=== PATIENT | female | born 1940 | race Caucasian/White ===

== ENCOUNTER 2018-04-07 09:45 | Day surgery (SDC) | payer MEDICARE, OTHER ==
[~2018-04-07] VITALS: Ht 167.6 cm; Wt 71.4 kg
[~2018-04-07 09:45] MED LIST: ATOR10 PO; Aspir 8181 MG PO; CALCIUM + D3 E1 EACH PO; CIPR500 PO; CRANBERRY; ERGO400 PO; ESCI10 PO; FISH1000 PO; FLUT44OIA INH; HYDACE5 PO; MULVITA PO; Metamucil Smooth1 EA PO; Ocuvite Softge1 EAC1 PO; RISE35 PO; RXERYTOPTH OP; Stool Softener100 MG PO; TUMERIC; UBID100 PO; VITB100 PO; [UNRECOGNIZED DRUG - OTHER] PO
--- NOTE | 2018-04-07 10:57 | NUR ---
04/07/18 1057 Lisette Ontiveros PT RESTING IN PREOP. PT DENIES QUESTIONS AFTER PREOP TEACHING.
== END 2018-04-07 11:49 | disposition home or self-care (01) ==
LOC: ORSCSDS 09:45
PROVIDERS: Surgery
PROC: 0DJD8ZZ Inspection of Lower Intestinal Tract, Via Natural or Artificial Opening Endoscopic (ICD-10-PCS; principal; 2018-04-07 11:00)
DX: Z12.11 Encounter for screening for malignant neoplasm of colon (principal); Z80.0 Family history of malignant neoplasm of digestive organs; Z86.010 Personal history of colon polyps; Z79.899 Other long term (current) drug therapy; Z79.82 Long term (current) use of aspirin
CPT/HCPCS: J7120

== ENCOUNTER → 2018-05-17 | Outpatient (CLI) | payer MEDICARE, OTHER | END | disposition home or self-care (01) | LOC: PLD 15:57 → LAB SHORT 15:57 | DX: D48.5 Neoplasm of uncertain behavior of skin (principal) | CPT/HCPCS: 88305 ==

== ENCOUNTER → 2019-06-20 | Outpatient (CLI) | payer MEDICARE, OTHER ==
[2019-06-20 08:09] LABS: Source, Urine Clean Catch
[2019-06-20 08:36] LABS: Bilirubin, Urine Neg (Neg); Blood, Urine Neg (Neg); Glucose Qualitative, Urine Neg (Neg); Ketones, Urine Neg (Neg); Leukocyte Esterase, Urine 1+ (Neg); Nitrite, Urine Neg (Neg); Protein, Urine Neg (Neg); Urobilinogen, Urine NORM (Normal)
[2019-06-20 08:47] LABS: Appearance, Urine Clear (Clear); Color, Urine Yellow (P-Yellow)
[2019-06-20 08:51] LABS: Bacteria Few /hpf; Red Blood Cells, Urine 0-2 /hpf (0-2); Squamous Epithelial Cells Few /hpf (Few); White Blood Cells, Urine 0-2 /hpf (0-5)
== END | disposition home or self-care (01) ==
LOC: LAB SHORT 08:07 → LAB 08:07
PROVIDERS: Internal Medicine
DX: R31.29 Other microscopic hematuria (principal)
CPT/HCPCS: 81001; 87086; 88108

== ENCOUNTER → 2020-04-18 | Outpatient (CLI) | payer MEDICARE, OTHER ==
[2020-04-18 10:53] LABS: Source, Urine Clean Catch
[2020-04-18 12:19] LABS: Appearance, Urine Clear (Clear); Bilirubin, Urine Neg (Neg); Blood, Urine Neg (Neg); Color, Urine Yellow (P-Yellow); Glucose Qualitative, Urine Neg (Neg); Ketones, Urine Neg (Neg); Leukocyte Esterase, Urine Neg (Neg); Nitrite, Urine Neg (Neg); Protein, Urine Neg (Neg); Specific Gravity, Urine 1.015 (1.003-1.022); Urobilinogen, Urine NORM (Normal)
== END | disposition home or self-care (01) ==
LOC: OLS 10:52 → LAB SHORT 10:52
PROVIDERS: Internal Medicine
DX: N39.0 Urinary tract infection, site not specified (principal)
CPT/HCPCS: 81003

== ENCOUNTER → 2021-07-23 | Outpatient (CLI) | payer MEDICARE, OTHER ==
[2021-07-31 05:11] LABS: CREATININE, URINE 45.6 mg/dL (Not Estab.); N-TELO/CREAT. RATIO 47 (0-89); N-TELOPEPTIDE 189 nmol BCE (Not Estab.)
== END | disposition home or self-care (01) ==
LOC: LAB SHORT 08:02 → LAB 08:02 → LAB FUT 07-23 07:10
PROVIDERS: Internal Medicine
DX: E78.5 Hyperlipidemia, unspecified (principal); M81.0 Age-related osteoporosis without current pathological fracture; R73.9 Hyperglycemia, unspecified; Z79.899 Other long term (current) drug therapy
CPT/HCPCS: 82523; 82570

== ENCOUNTER 2023-12-16 17:03 | Emergency (ER) | payer MEDICARE, OTHER ==
[~2023-12-16] VITALS: Ht 167.6 cm; Wt 70.3 kg
[2023-12-16 17:56] LABS: BASOPHILS ABSOLUTE AUTO 0.03 K/mm3 (0.00-0.23); BASOPHILS PERCENT AUTO 0 % (0-2); EOSINOPHILS ABSOLUTE AUTO 0.18 K/mm3 (0.00-0.68); EOSINOPHILS PERCENT AUTO 2 % (0-6); Hematocrit 44.8 % (33.0-51.0); Hemoglobin 14.7 g/dL (11.5-16.0); IMMATURE GRAN ABSOLUTE AUTO 0.01 K/mm3 (0.00-0.10); IMMATURE GRAN PERCENT AUTO 0 % (0-1); LYMPHOCYTES ABSOLUTE AUTO 2.56 K/mm3 (0.84-5.20); LYMPHOCYTES PERCENT AUTO 33 % (21-46); MONOCYTES ABSOLUTE AUTO 0.74 K/mm3 (0.16-1.47); MONOCYTES PERCENT AUTO 10 % (4-13); Mean Corpuscular HGB Conc 32.8 g/dL (31.5-36.5); Mean Corpuscular Volume 88 fL (80-100); Mean Platelet Volume 10.3 fL (9.1-12.4); NEUTROPHILS ABSOLUTE AUTO 4.23 K/mm3 (1.96-9.15); NEUTROPHILS PERCENT AUTO 55 % (41-73); Platelet Count 165 K/mm3 (150-400); RDW Coefficient Variation 13.8 % (11.7-14.2); RDW Standard Deviation 44.6 fL (35.1-46.3); Red Blood Cell Count 5.07 M/mm3 (3.80-5.20); White Blood Cell Count 7.75 K/mm3 (4.00-11.30)
[2023-12-16 18:13] LABS: Albumin, Blood 3.8 g/dL (3.4-5.0); Albumin/Globulin Ratio 1.1 (0.8-1.8); Bilirubin, Total 0.5 mg/dL (0.1-1.0); Bun/Creatinine Ratio 23.6 (12.0-20.0); Calcium, Blood 8.7 mg/dL (8.5-10.1); Creatinine, Blood 0.64 mg/dL (0.40-1.00); Globulin, Blood 3.5 g/dL (2.2-4.0); Potassium, Blood 4.1 mmol/L (3.5-5.5); Total Protein, Blood 7.3 g/dL (6.4-8.2)
[2023-12-16] MEDS ORDERED: Diltiazem HCl 5 MG / ML 5ML Vial IV ONE ×2 (19:40→20:55)
[2023-12-16 20:34] LABS: Free Thyroxine 0.99 ng/dL (0.70-1.60); Magnesium, Blood 2.3 mg/dL (1.6-2.4)
[2023-12-16 22:45] VITALS: BP 117/72
== END 2023-12-16 22:55 | disposition home or self-care (01) ==
LOC: ER 17:03
PROVIDERS: Emergency Medicine; Physician Assistant
DX: Z79.899 Other long term (current) drug therapy (principal); I48.0 Paroxysmal atrial fibrillation; D69.6 Thrombocytopenia, unspecified; R53.83 Other fatigue
CPT/HCPCS: 36415; 71045; 80048; 80053; 83735; 84439; 84443; 84484; 85025; 85379; 93005; 93010; 96374; 96376; 99285-25

== ENCOUNTER 2024-06-09 10:45 | Emergency (ER) | payer MEDICARE, OTHER ==
[~2024-06-09] VITALS: Ht 317.5 cm; Wt 70.3 kg
[2024-06-09] MEDS ORDERED: Diltiazem HCl 5 MG / ML 5ML Vial IV ONE ×2 (11:15→12:00)
[2024-06-09] MEDS ORDERED: NS 1,000 ML IV SCH (11:15)
[2024-06-09] MEDS ORDERED: ELIQUIS5 M3 PO (11:20)
[2024-06-09] MEDS ORDERED: METOPROLOL SUCC25 MG PO (11:20)
[2024-06-09 11:28] LABS: BASOPHILS ABSOLUTE AUTO 0.03 K/mm3 (0.00-0.23); BASOPHILS PERCENT AUTO 1 % (0-2); EOSINOPHILS PERCENT AUTO 2 % (0-6); Hematocrit 45.5 % (33.0-51.0); Hemoglobin 15.1 g/dL (11.5-16.0); IMMATURE GRAN ABSOLUTE AUTO 0.01 K/mm3 (0.00-0.10); IMMATURE GRAN PERCENT AUTO 0 % (0-1); LYMPHOCYTES ABSOLUTE AUTO 2.08 K/mm3 (0.84-5.20); LYMPHOCYTES PERCENT AUTO 33 % (21-46); MONOCYTES ABSOLUTE AUTO 0.71 K/mm3 (0.16-1.47); MONOCYTES PERCENT AUTO 11 % (4-13); Mean Corpuscular HGB 29.2 pg (26.0-34.0); Mean Corpuscular HGB Conc 33.2 g/dL (31.5-36.5); Mean Corpuscular Volume 88 fL (80-100); Mean Platelet Volume 10.9 fL (9.1-12.4); NEUTROPHILS ABSOLUTE AUTO 3.32 K/mm3 (1.96-9.15); NEUTROPHILS PERCENT AUTO 53 % (41-73); Platelet Count 138 K/mm3 (150-400); RDW Coefficient Variation 13.8 % (11.7-14.2); RDW Standard Deviation 44.8 fL (35.1-46.3); Red Blood Cell Count 5.18 M/mm3 (3.80-5.20); White Blood Cell Count 6.25 K/mm3 (4.00-11.30)
[2024-06-09] MEDS ORDERED: Magnesium Sulf 2 GM/Water 50ML 50 ML IV ONE (11:30)
[2024-06-09 12:01] LABS: Albumin, Blood 3.8 g/dL (3.4-5.0); Albumin/Globulin Ratio 1.2 (0.8-1.8); Bilirubin, Total 1.2 mg/dL (0.1-1.0); Bun/Creatinine Ratio 23.4 (12.0-20.0); Calcium, Blood 8.8 mg/dL (8.5-10.1); Creatinine, Blood 0.73 mg/dL (0.40-1.00); Globulin, Blood 3.2 g/dL (2.2-4.0); Magnesium, Blood 2.2 mg/dL (1.6-2.4); Potassium, Blood 4.2 mmol/L (3.5-5.5)
[2024-06-09] MEDS ORDERED: Metoprolol Tartrate 25 MG Tab PO ONE (13:00)
[2024-06-09] MEDS ORDERED: Etomidate 2MG / ML 10ML Vial IV SCH (14:05)
[2024-06-09 15:00] VITALS: BP 108/73
== END 2024-06-09 15:36 | disposition home or self-care (01) ==
LOC: ER 10:45
PROVIDERS: Student in an Organized Health Care Education/Training Program
DX: I48.91 Unspecified atrial fibrillation (principal); E78.5 Hyperlipidemia, unspecified; Z79.899 Other long term (current) drug therapy
CPT/HCPCS: 80053; 83735; 85025; 92960; 93005; 93010; 93242; 96365-59; 96375-59; 96376-59; 99285-25; A9270; J3475; J7030

== ENCOUNTER 2024-06-15 09:45 | Emergency (ER) | payer MEDICARE, OTHER ==
[~2024-06-15] VITALS: Ht 167.6 cm; Wt 70.3 kg
[~2024-06-15 09:45] MED LIST changes: +ELIQUIS5 M3 PO; +METOPROLOL SUCC25 MG PO
[2024-06-15] MEDS ORDERED: Diltiazem HCl 5 MG / ML 5ML Vial IV ONE (10:15)
[2024-06-15 10:31] LABS: BASOPHILS ABSOLUTE AUTO 0.06 K/mm3 (0.00-0.23); BASOPHILS PERCENT AUTO 1 % (0-2); EOSINOPHILS ABSOLUTE AUTO 0.14 K/mm3 (0.00-0.68); EOSINOPHILS PERCENT AUTO 2 % (0-6); Hematocrit 49.3 % (33.0-51.0); Hemoglobin 16.4 g/dL (11.5-16.0); IMMATURE GRAN ABSOLUTE AUTO 0.01 K/mm3 (0.00-0.10); IMMATURE GRAN PERCENT AUTO 0 % (0-1); LYMPHOCYTES ABSOLUTE AUTO 2.58 K/mm3 (0.84-5.20); LYMPHOCYTES PERCENT AUTO 40 % (21-46); MONOCYTES ABSOLUTE AUTO 0.79 K/mm3 (0.16-1.47); MONOCYTES PERCENT AUTO 12 % (4-13); Mean Corpuscular HGB 29.2 pg (26.0-34.0); Mean Corpuscular HGB Conc 33.3 g/dL (31.5-36.5); Mean Corpuscular Volume 88 fL (80-100); Mean Platelet Volume 10.2 fL (9.1-12.4); NEUTROPHILS ABSOLUTE AUTO 2.84 K/mm3 (1.96-9.15); NEUTROPHILS PERCENT AUTO 44 % (41-73); Platelet Count 150 K/mm3 (150-400); RDW Coefficient Variation 13.9 % (11.7-14.2); RDW Standard Deviation 44.7 fL (35.1-46.3); Red Blood Cell Count 5.62 M/mm3 (3.80-5.20); White Blood Cell Count 6.42 K/mm3 (4.00-11.30)
[2024-06-15 10:52] LABS: Albumin, Blood 3.6 g/dL (3.4-5.0); Bilirubin, Total 0.8 mg/dL (0.1-1.0); Calcium, Blood 8.5 mg/dL (8.5-10.1); Creatinine, Blood 0.71 mg/dL (0.40-1.00); Globulin, Blood 3.5 g/dL (2.2-4.0); Potassium, Blood 4.2 mmol/L (3.5-5.5); Thyroid Stimulating Hormone 4.5 uIU/mL (0.360-4.800); Total Protein, Blood 7.1 g/dL (6.4-8.2)
[2024-06-15] MEDS ORDERED: NS 250 ML IV SCH (10:55)
[2024-06-15] MEDS ORDERED: NS 1,000 ML IV SCH (11:05)
[2024-06-15] MEDS ORDERED: CARTIA XT120 M1 PO (11:35)
[2024-06-15 11:54] VITALS: BP 98/69
[2024-06-20] MEDS ORDERED: JARDIANCE10 MG PO (11:52)
[2024-06-20] MEDS ORDERED: METO25ER PO (11:53)
[2024-06-20] MEDS ORDERED: SPIR25 PO (12:18)
[2024-06-20] MEDS ORDERED: TORSE20 PO (12:23)
[2024-06-20] MEDS ORDERED: Amiodarone HCl200 MG PO (12:34)
[2024-06-20] MEDS ORDERED: AMIODARONE HCL200 MG PO (12:35)
== END 2024-06-15 11:55 | disposition home or self-care (01) ==
LOC: ER 09:45
PROVIDERS: Emergency Medicine
DX: I48.91 Unspecified atrial fibrillation (principal); F17.210 Nicotine dependence, cigarettes, uncomplicated; Z79.01 Long term (current) use of anticoagulants; Z79.899 Other long term (current) drug therapy
CPT/HCPCS: 80053; 83735; 84443; 84484; 85025; 93005; 93010; 96361; 96374; 99284-25; 99285-25; J7030

== ENCOUNTER 2024-06-18 09:38 | Inpatient (IN) | payer MEDICARE, OTHER ==
[~2024-06-18] VITALS: Ht 167.6 cm; Wt 68.9 kg
[~2024-06-18 09:38] MED LIST changes: +CARTIA XT120 M1 PO
[2024-06-18] MEDS ORDERED: dilTIAZem HCL 100 MG in NS 100 ML IV SCH (10:30)
[2024-06-18] MEDS ORDERED: Diltiazem HCl 5 MG / ML 5ML Vial IV ONE (10:30)
[2024-06-18 10:45] LABS: BASOPHILS ABSOLUTE AUTO 0.04 K/mm3 (0.00-0.23); BASOPHILS PERCENT AUTO 1 % (0-2); EOSINOPHILS ABSOLUTE AUTO 0.13 K/mm3 (0.00-0.68); EOSINOPHILS PERCENT AUTO 2 % (0-6); Hematocrit 47.5 % (33.0-51.0); Hemoglobin 15.6 g/dL (11.5-16.0); IMMATURE GRAN ABSOLUTE AUTO 0.01 K/mm3 (0.00-0.10); IMMATURE GRAN PERCENT AUTO 0 % (0-1); LYMPHOCYTES ABSOLUTE AUTO 2.62 K/mm3 (0.84-5.20); LYMPHOCYTES PERCENT AUTO 45 % (21-46); MONOCYTES ABSOLUTE AUTO 0.71 K/mm3 (0.16-1.47); MONOCYTES PERCENT AUTO 12 % (4-13); Mean Corpuscular HGB Conc 32.8 g/dL (31.5-36.5); Mean Corpuscular Volume 88 fL (80-100); Mean Platelet Volume 10.6 fL (9.1-12.4); NEUTROPHILS ABSOLUTE AUTO 2.34 K/mm3 (1.96-9.15); NEUTROPHILS PERCENT AUTO 40 % (41-73); Platelet Count 172 K/mm3 (150-400); RDW Coefficient Variation 14.3 % (11.7-14.2); RDW Standard Deviation 45.9 fL (35.1-46.3); Red Blood Cell Count 5.38 M/mm3 (3.80-5.20); White Blood Cell Count 5.85 K/mm3 (4.00-11.30)
[2024-06-18 10:51] LABS: Albumin, Blood 3.8 g/dL (3.4-5.0); Albumin/Globulin Ratio 1.2 (0.8-1.8); Bilirubin, Total 1.2 mg/dL (0.1-1.0); Bun/Creatinine Ratio 14.6 (12.0-20.0); Calcium, Blood 8.5 mg/dL (8.5-10.1); Creatinine, Blood 0.75 mg/dL (0.40-1.00); Globulin, Blood 3.2 g/dL (2.2-4.0); Potassium, Blood 4.1 mmol/L (3.5-5.5)
[2024-06-18] MEDS ORDERED: TraZODone HCl 50 MG Tab PO PRN (13:40)
[2024-06-18] MEDS ORDERED: Ondansetron 4 MG TAB PO PRN (13:40)
[2024-06-18] MEDS ORDERED: Magnesium Hydroxide Conc 10 ML UDC PO PRN (13:45)
[2024-06-18] MEDS ORDERED: Bisacodyl 10 MG Supp PR PRN (13:45)
[2024-06-18] MEDS ORDERED: FLU VACC TS2024-25(6MOS UP)/PF 45 MCG/0.5 ML SYRINGE IM PRN (13:45)
[2024-06-18 15:30] VITALS: BP 135/85
[2024-06-18 15:45] VITALS: BP 112/84
[2024-06-18 16:14] LABS: Source, Urine Clean Catch
[2024-06-18 16:18] LABS: Appearance, Urine Clear (Clear); Bilirubin, Urine Neg (Neg); Blood, Urine Neg (Neg); Glucose Qualitative, Urine Neg (Neg); Ketones, Urine Neg (Neg); Leukocyte Esterase, Urine Neg (Neg); Nitrite, Urine Neg (Neg); Protein, Urine Neg (Neg); Urobilinogen, Urine NORM (Normal)
[2024-06-18 16:30] VITALS: BP 111/65
[2024-06-18 16:34] LABS: Color, Urine Pale Yellow (P-Yellow)
[2024-06-18] MEDS ORDERED: Midodrine 5 MG Tab PO SCH (18:00)
[2024-06-18] MEDS ORDERED: Furosemide 10 MG/ML 4ML Vial IV SCH (18:00)
[2024-06-18 18:15] VITALS: BP 127/93
[2024-06-18] MEDS ORDERED: Polyethylene Glycol 3350 17 gm PO PRN (18:15)
--- NOTE | 2024-06-18 18:41 | NUR ---
Admit/ End of shift note. Pt admitted from the ED to room [id number]. Pt and family were oriented to room and call light system. Pt on Amio gtt, infusing without issue. Rate to change at approx 2100. HR 100-120s. BP stable. Pt has been OOB to the bathroom, standby assist with lines/cords. Pt was educated on the importance of calling before getting OOB. Pt reports it has been a few days since a BM. PRN Chauncey was given Pt is able to make needs known, call light is within reach.
[2024-06-18 19:00] VITALS: BP 125/93
--- NOTE | 2024-06-18 20:22 | NUR ---
ASSUMED CARE OF THIS PT AT 1900. PT IS A+O X4 SITTING UP IN BED WITH FAMILY AT BEDSIDE (TWO ADULT DAUGHTERS). THEY EXPLAIN HER ISSUES WITH HER HEART RATE AND TELL ME OF THEIR SEVERAL TRIPS TO DOCTORS RECENTLY TO TRY TO MANAGE HER AFIB. OTHER THEN THIS CURRENT ISSUES SHE IS NORMALLY VERY ACTIVE ANS HEALTHY. THE PATIENT LIVES ALONE AND STILL DRIVES BUT HAS A LOT OF FAMILY SUPPORT. LUNG SOUNDS ARE CLEAR, SHE IS RA SATTING ABOVE 95% ON SPOT CHECK. TELE IN PLACE SHOWING AFIB WITH A RATE OF 115 AT THIS TIME. PT DENIES CHEST PAIN OR PRESSURE. NO SKIN ISSUES NOTED. BED IN LOWEST POSTION, CALL LIGHT IN REACH. WILL CONTINUE WITH PLAN OF CARE.
[2024-06-18] MEDS ORDERED: Lactobacil 2-S.Thermo-Bifido 1 1 Cap PO SCH (21:00)
[2024-06-18] MEDS ORDERED: Metoprolol Tartrate 25 MG Tab PO SCH ×2 (21:00)
[2024-06-18] MEDS ORDERED: Apixaban 5 MG Tab PO SCH (21:00)
--- NOTE | 2024-06-18 21:01 | NUR ---
NURSE NOTE DILT GTT TITRATED TO 16.7 PER EMAR.
[2024-06-19] VITALS (7 sets, daily range): BP systolic 107–137; BP diastolic 68–106
--- NOTE | 2024-06-19 01:50 | NUR ---
NURSE NOTE SECOND BAG OF AMIODARONE HUNG AT 0059 INFUSING AT A RATE OF 16.7. PATIENT IS RESTING IN BED, IN NO ACUTE DISTRESS OR DISCOMFORT, BREATHING EVEN AND UNLABORED, VSS. BED IN LOWEST POSTION. CALL LIGHT IN REACH.
[2024-06-19 04:06] LABS: Hematocrit 45.4 % (33.0-51.0); Hemoglobin 15.5 g/dL (11.5-16.0); Mean Corpuscular HGB 29.5 pg (26.0-34.0); Mean Corpuscular HGB Conc 34.1 g/dL (31.5-36.5); Mean Corpuscular Volume 86 fL (80-100); Mean Platelet Volume 10.5 fL (9.1-12.4); Platelet Count 151 K/mm3 (150-400); RDW Coefficient Variation 14.1 % (11.7-14.2); RDW Standard Deviation 44.5 fL (35.1-46.3); Red Blood Cell Count 5.26 M/mm3 (3.80-5.20); White Blood Cell Count 7.12 K/mm3 (4.00-11.30)
[2024-06-19 04:25] LABS: Bun/Creatinine Ratio 18.5 (12.0-20.0); Calcium, Blood 8.5 mg/dL (8.5-10.1); Creatinine, Blood 0.65 mg/dL (0.40-1.00); Magnesium, Blood 2.1 mg/dL (1.6-2.4); Potassium, Blood 3.4 mmol/L (3.5-5.5)
[2024-06-19] MEDS ORDERED: Potassium Chloride 10 Meq Tablet SA PO ONE (04:54)
[2024-06-19] MEDS ORDERED: Famotidine 20 MG Tab PO SCH (06:00)
--- NOTE | 2024-06-19 06:07 | NUR ---
SHIFT SUMMARY PT IS A+O X4 ABLE TO MAKE NEEDS KNOWN. SHE WAS ABLE TO SLEEP MOST OF THE NIGHT. 1 PERSON/ SBA TO BATHROOM TO ASSIST WITH LINES. BP STABLE. AFIB ON THE MONTIOR RATE BETWEEN 100-120s AT REST, HR WILL JUMP UP INTO THE 140s/150S W/ ACTIVITY. DENIES CHEST PAIN OR PRESSURE, DENIES PAIN OR ANY KIND. GOOD PO FLUID INTAKE AND GOOD OUT PUT. K OF 3.4 THIS MORNING REPLACED WITH 30 MEQs PO. PT TANVI PILLS WHOLE WITH WATER. BED IN LOWEST POSTION, CALL LIGHT IN REACH WILL CONTINUE WITH PLAN OF CARE AND REPORT TO ONCOMING RN.
[2024-06-19] MEDS ORDERED: Amiodarone HCl 200 MG Tab PO ONE (08:25)
[2024-06-19] MEDS ORDERED: Amiodarone HCl 200 MG Tab PO SCH (09:00)
[2024-06-19] MEDS ORDERED: Atorvastatin 10 MG Tab PO SCH (09:00)
[2024-06-19] MEDS ORDERED: Midodrine 2.5 MG Tab PO SCH (09:00)
[2024-06-19] MEDS ORDERED: Potassium Chloride 20 MEQ TabCR PO ONE (09:00)
[2024-06-19] MEDS ORDERED: Furosemide 10 MG/ML 4ML Vial IV SCH (09:00)
[2024-06-19] MEDS ORDERED: Digoxin 0.25 MG/ML 2ML Amp IV ONE (12:50)
--- NOTE | 2024-06-19 16:54 | NUR ---
SHIFT SUMMARY: PT HAS BEEN A&Ox4, COOPERATIVE W/CARE, ABLE TO COMMUNICATE NEEDS. PT DENIES SOB AT REST, DID REPORT MILD DYSPNEA WHEN AMBULATING W/THERAPY TEAM, STATES IMPROVEMENT UPON REST, O2 SATS >95% ON RA. PT DENIES CP, AFIB/FLUTTER ON MONITOR, RATE 100-110s AT REST AND INCREASES TO 130 W/ACTIVITY BUT DOES RECOVER W/REST. CARDIOLOGY CONSULT COMPLETED AT BEDSIDE, AMIO INFUSION CHANGED FROM IV TO PO, ONE TIME IVP CARDIZEM PER ORDERS. PT INDEPENDENT IN ROOM, SHOWER AND BMx1 TODAY. PT RESTING IN BED W/CALL LIGHT IN REACH.
--- NOTE | 2024-06-19 20:21 | NUR ---
assumption of care: REPORT RECEIVED FROM DAY RN. PATIENT IS ALERT/ORIENTATED. FAMILY IN ROOM VISITING. PATIENT APPEARS COMFORTABLE. CONTINUE CARE
[2024-06-19] MEDS ORDERED: Metoprolol Succinate 25 MG TABCR PO SCH (21:00)
[2024-06-20 00:07] VITALS: BP 91/70
[2024-06-20 03:52] LABS: Hematocrit 46.4 % (33.0-51.0); Hemoglobin 15.7 g/dL (11.5-16.0)
[2024-06-20 04:07] VITALS: BP 92/74
[2024-06-20 04:11] LABS: Bun/Creatinine Ratio 22.8 (12.0-20.0); Calcium, Blood 8.2 mg/dL (8.5-10.1); Creatinine, Blood 0.66 mg/dL (0.40-1.00); Magnesium, Blood 1.9 mg/dL (1.6-2.4); Potassium, Blood 3.7 mmol/L (3.5-5.5)
--- NOTE | 2024-06-20 05:09 | NUR ---
Patient slept well. Up to bathroom and voiding in good amounts. Blood pressures soft tonight. No c/o pain Tele Afib. Plan to discharge to home. Continue Care.
[2024-06-20 07:57] VITALS: BP 113/86
[2024-06-20] MEDS ORDERED: Amiodarone HCl 200 MG Tab PO SCH (09:00)
[2024-06-20] MEDS ORDERED: Empagliflozin 10 MG TAB PO SCH (09:00)
[2024-06-20 11:44] VITALS: BP 91/74
[2024-06-20] MEDS ORDERED: JARDIANCE10 MG PO ×2 (11:52)
[2024-06-20] MEDS ORDERED: METO25ER PO ×2 (11:53)
--- NOTE | 2024-06-20 12:16 | NUR ---
AM NOTE/PENDING DC: PT CONTINUES A&Ox4, INDEPENDENT IN ROOM, ABLE TO MAKE NEEDS KNOWN. PT REPORTS IMPROVEMENT TO SOB W/ACTIVITY, DENIES SOB AT REST, O2 SATS >95% ON RA. PT CONVERTED TO SR 66 AT 1104, HOSPITALIST NOTIFIED. PT CONTINUES TO PEND DISCHARGE HOME, WAITING TO HEAR BACK F/INFANTRY SENIOR SERGEANT TO ENSURE CONTINUATION OF CURRENT MEDICATIONS UPON DC.
[2024-06-20] MEDS ORDERED: SPIR25 PO ×2 (12:18)
[2024-06-20] MEDS ORDERED: TORSE20 PO ×2 (12:23)
[2024-06-20] MEDS ORDERED: Amiodarone HCl200 MG PO ×2 (12:34)
[2024-06-20] MEDS ORDERED: AMIODARONE HCL200 MG PO ×2 (12:35)
[2024-06-20 13:25] VITALS: BP 93/79
--- NOTE | 2024-06-20 14:10 | NUR ---
Discharge note. Pt was discharged home. All new meds were educated on. All questions were answered for Pt and daughter. Pt ambualted to the outside door without issue. All belongings were taken with Pt.
[2024-06-21] MEDS ORDERED: Spironolactone 25 MG Tab PO SCH (09:00)
[2024-06-21] MEDS ORDERED: Torsemide 20 MG TAB PO SCH (09:00)
[2024-06-23] MEDS ORDERED: Amiodarone HCl 200 MG Tab PO SCH (09:00)
== END 2024-06-20 14:08 | disposition home or self-care (01) | DRG 308 ==
LOC: ER 09:38 → PCU 13:38
PROVIDERS: Emergency Medicine; ADMIT Hospitalist
DX: I48.0 Paroxysmal atrial fibrillation (principal); I50.33 Acute on chronic diastolic (congestive) heart failure; F10.239 Alcohol dependence with withdrawal, unspecified; M81.0 Age-related osteoporosis without current pathological fracture; E78.5 Hyperlipidemia, unspecified; Z96.652 Presence of left artificial knee joint; F17.210 Nicotine dependence, cigarettes, uncomplicated; I95.9 Hypotension, unspecified; I35.0 Nonrheumatic aortic (valve) stenosis; K21.9 Gastro-esophageal reflux disease without esophagitis; R79.89 Other specified abnormal findings of blood chemistry; Z79.01 Long term (current) use of anticoagulants; Z79.899 Other long term (current) drug therapy; Z87.19 Personal history of other diseases of the digestive system; Z90.49 Acquired absence of other specified parts of digestive tract; Z90.89 Acquired absence of other organs; Z98.41 Cataract extraction status, right eye
CPT/HCPCS: 36415; 71046; 80048; 80053; 80076; 81003; 83735; 83880; 84484; 85014; 85018; 85025; 85027; 93005; 93010; 93306; 96374; 97165; 97535; 99285-25; A9270; J0282; J1160; J1940; J7060

== ENCOUNTER 2024-07-16 21:49 | Inpatient (IN) | payer MEDICARE ==
[~2024-07-16] VITALS: Ht 167.6 cm; Wt 67.2 kg
[~2024-07-16 21:49] MED LIST changes: +AMIODARONE HCL200 MG PO; +Amiodarone HCl200 MG PO; +JARDIANCE10 MG PO; +METO25ER PO; +SPIR25 PO; +TORSE20 PO
[2024-07-16 22:15] LABS: BASOPHILS ABSOLUTE AUTO 0.05 K/mm3 (0.00-0.23); BASOPHILS PERCENT AUTO 1 % (0-2); EOSINOPHILS PERCENT AUTO 2 % (0-6); Hematocrit 47.1 % (33.0-51.0); Hemoglobin 15.5 g/dL (11.5-16.0); IMMATURE GRAN ABSOLUTE AUTO 0.02 K/mm3 (0.00-0.10); IMMATURE GRAN PERCENT AUTO 0 % (0-1); LYMPHOCYTES PERCENT AUTO 37 % (21-46); MONOCYTES ABSOLUTE AUTO 0.95 K/mm3 (0.16-1.47); MONOCYTES PERCENT AUTO 12 % (4-13); Mean Corpuscular HGB 28.5 pg (26.0-34.0); Mean Corpuscular HGB Conc 32.9 g/dL (31.5-36.5); Mean Corpuscular Volume 87 fL (80-100); Mean Platelet Volume 10.1 fL (9.1-12.4); NEUTROPHILS ABSOLUTE AUTO 4.01 K/mm3 (1.96-9.15); NEUTROPHILS PERCENT AUTO 49 % (41-73); Platelet Count 202 K/mm3 (150-400); RDW Coefficient Variation 14.2 % (11.7-14.2); RDW Standard Deviation 44.8 fL (35.1-46.3); Red Blood Cell Count 5.43 M/mm3 (3.80-5.20); White Blood Cell Count 8.23 K/mm3 (4.00-11.30)
[2024-07-16 22:34] LABS: Albumin, Blood 3.9 g/dL (3.4-5.0); Albumin/Globulin Ratio 1.1 (0.8-1.8); Bilirubin, Total 0.4 mg/dL (0.1-1.0); Bun/Creatinine Ratio 28.5 (12.0-20.0); Calcium, Blood 8.8 mg/dL (8.5-10.1); Creatinine, Blood 0.81 mg/dL (0.40-1.00); Globulin, Blood 3.5 g/dL (2.2-4.0); Potassium, Blood 3.9 mmol/L (3.5-5.5); Total Protein, Blood 7.4 g/dL (6.4-8.2)
[2024-07-17] VITALS (9 sets, daily range): BP systolic 80–115; BP diastolic 54–77
[2024-07-17] MEDS ORDERED: Acetaminophen 325 MG TABLET PO PRN (00:30)
[2024-07-17 00:53] LABS: Magnesium, Blood 2.3 mg/dL (1.6-2.4)
[2024-07-17 04:03] LABS: BASOPHILS ABSOLUTE AUTO 0.04 K/mm3 (0.00-0.23); BASOPHILS PERCENT AUTO 1 % (0-2); EOSINOPHILS ABSOLUTE AUTO 0.27 K/mm3 (0.00-0.68); EOSINOPHILS PERCENT AUTO 4 % (0-6); Hematocrit 47.2 % (33.0-51.0); Hemoglobin 15.5 g/dL (11.5-16.0); IMMATURE GRAN ABSOLUTE AUTO 0.03 K/mm3 (0.00-0.10); IMMATURE GRAN PERCENT AUTO 0 % (0-1); LYMPHOCYTES ABSOLUTE AUTO 2.62 K/mm3 (0.84-5.20); LYMPHOCYTES PERCENT AUTO 34 % (21-46); MONOCYTES ABSOLUTE AUTO 0.88 K/mm3 (0.16-1.47); MONOCYTES PERCENT AUTO 11 % (4-13); Mean Corpuscular HGB 28.8 pg (26.0-34.0); Mean Corpuscular HGB Conc 32.8 g/dL (31.5-36.5); Mean Corpuscular Volume 88 fL (80-100); NEUTROPHILS ABSOLUTE AUTO 3.96 K/mm3 (1.96-9.15); NEUTROPHILS PERCENT AUTO 51 % (41-73); Platelet Count 179 K/mm3 (150-400); RDW Coefficient Variation 14.4 % (11.7-14.2); RDW Standard Deviation 46.2 fL (35.1-46.3); Red Blood Cell Count 5.39 M/mm3 (3.80-5.20)
[2024-07-17 04:22] LABS: Albumin, Blood 3.5 g/dL (3.4-5.0); Bilirubin, Total 0.5 mg/dL (0.1-1.0); Bun/Creatinine Ratio 22.2 (12.0-20.0); Calcium, Blood 8.5 mg/dL (8.5-10.1); Creatinine, Blood 0.85 mg/dL (0.40-1.00); Globulin, Blood 3.4 g/dL (2.2-4.0); Magnesium, Blood 2.5 mg/dL (1.6-2.4); Potassium, Blood 3.9 mmol/L (3.5-5.5); Total Protein, Blood 6.9 g/dL (6.4-8.2)
--- NOTE | 2024-07-17 06:33 | NUR ---
Admit/ End of shift note. Pt was admitted from the ED to PCU2. Pt was oriented to room and call light system. Pt continues on the amio infusion. HR high 90s at rest, low 100s when OOB. BP on the soft side but Pt is asymptomatic. Pt has been SBA, to assist with lines/cords. Pt is able to make needs known, call light is within reach.
--- NOTE | 2024-07-17 07:15 | NUR ---
INITIAL ASSESSMENT: Patient is awake alert and oriented x4. Denies pain at this time. She is in A-Fib in the low 100s, amio gtt currently infusing at 1mg/min, turnred down to 0.5 mg/min. LS CTA, biox WNL on RA. BT+. PPP. She has a small abrasion to her left elbow, she states she brushed up against something when she was weeding her garden. She would like to see her Cardiologst this stay, will notify MD of patient request. BP on the soft side, MAP 72. She denies other needs at this time. Call light in reach.
[2024-07-17] MEDS ORDERED: Empagliflozin 10 MG TAB PO SCH (09:00)
[2024-07-17] MEDS ORDERED: Atorvastatin 10 MG Tab PO SCH (09:00)
[2024-07-17] MEDS ORDERED: Spironolactone 50 MG Tab PO SCH (09:00)
[2024-07-17] MEDS ORDERED: Apixaban 5 MG Tab PO SCH (09:00)
[2024-07-17] MEDS ORDERED: Torsemide 20 MG TAB PO SCH ×2 (09:00→11:00)
[2024-07-17] MEDS ORDERED: Metoprolol Succinate 25 MG TABCR PO SCH (09:00)
[2024-07-17] MEDS ORDERED: Torsemide 10 MG TAB PO SCH (10:55)
[2024-07-17] MEDS ORDERED: Amiodarone HCl 200 MG Tab PO ONE (12:30)
--- NOTE | 2024-07-17 15:55 | NUR ---
Upon receiving a referral for spiritual care, I visited the patient. She is lying in bed and alert. She tells me about her medical history and the scare she has felt when she has been rushed to the hospital for heart related symptoms. She voices her gratitude for that her symptoms can be managed with medications and hopes that everything will go well. She tells me that she lives independently and that she has two very attentive dtrs and sons in law who make sure she is well taken care of. She tells me about her social activities and hobbies that keep her healthy and enjoying life. She welcomes prayer and and showed signs of an elevated mood after the visit and prayer were provided. I will continue to remain available to patient and family
[2024-07-17] MEDS ORDERED: Potassium Chloride 10 Meq Tablet SA PO ONE (16:10)
--- NOTE | 2024-07-17 17:45 | NUR ---
SUMMARY: Patient has been alert and oriented T/O the shift. She started the shift in A-Fib and covnerted to at 1731. Blood pressures have been a little soft, patient denies dizziness, SOB, chest pressure or pain. LS CTA, biox is high 90s on RA. BT+. She has been able to ambulate to the bathroom IND with steady gait. Daughters have been at the bedside T/O the shift. No other changes this shift, will report to [facility].
[2024-07-18 03:51] LABS: BASOPHILS ABSOLUTE AUTO 0.03 K/mm3 (0.00-0.23); BASOPHILS PERCENT AUTO 0 % (0-2); EOSINOPHILS ABSOLUTE AUTO 0.22 K/mm3 (0.00-0.68); EOSINOPHILS PERCENT AUTO 3 % (0-6); Hematocrit 46.7 % (33.0-51.0); Hemoglobin 15.5 g/dL (11.5-16.0); IMMATURE GRAN ABSOLUTE AUTO 0.04 K/mm3 (0.00-0.10); IMMATURE GRAN PERCENT AUTO 1 % (0-1); LYMPHOCYTES ABSOLUTE AUTO 2.66 K/mm3 (0.84-5.20); LYMPHOCYTES PERCENT AUTO 31 % (21-46); MONOCYTES ABSOLUTE AUTO 0.73 K/mm3 (0.16-1.47); MONOCYTES PERCENT AUTO 9 % (4-13); Mean Corpuscular HGB Conc 33.2 g/dL (31.5-36.5); Mean Corpuscular Volume 88 fL (80-100); NEUTROPHILS ABSOLUTE AUTO 4.81 K/mm3 (1.96-9.15); NEUTROPHILS PERCENT AUTO 57 % (41-73); Platelet Count 208 K/mm3 (150-400); RDW Coefficient Variation 14.5 % (11.7-14.2); RDW Standard Deviation 46.5 fL (35.1-46.3); Red Blood Cell Count 5.34 M/mm3 (3.80-5.20); White Blood Cell Count 8.49 K/mm3 (4.00-11.30)
[2024-07-18 04:07] VITALS: BP 97/62
[2024-07-18 04:14] LABS: Albumin, Blood 3.6 g/dL (3.4-5.0); Albumin/Globulin Ratio 1.1 (0.8-1.8); Bilirubin, Total 0.6 mg/dL (0.1-1.0); Bun/Creatinine Ratio 20.2 (12.0-20.0); Calcium, Blood 8.4 mg/dL (8.5-10.1); Creatinine, Blood 0.99 mg/dL (0.40-1.00); Globulin, Blood 3.2 g/dL (2.2-4.0); Magnesium, Blood 2.4 mg/dL (1.6-2.4); Phosphorus, Blood 4.1 mg/dL (2.5-4.9); Potassium, Blood 4.2 mmol/L (3.5-5.5); Total Protein, Blood 6.8 g/dL (6.4-8.2)
--- NOTE | 2024-07-18 06:53 | NUR ---
PT STABLE THROUGHOUT SHIFT, EXCEPT FOR 1X EPISODE OF BRADYCARDIA 35-45, PT ASYSMPTOMATIC. BRADYCARDIA RESOLVED QUICKLY AND VITAL SIGNS REMAIN WNL OTHERWISE. PT AOX4, SBA/INDEPENDENT TO BR. PT USES CALL LIGHT APPRORPRIATELY AND ABLE TO MAKE NEEDS KNOWN. PT VERY COOPERATIVE AND PLEASANT. NO C/O CP OR DYSPNEA. PT WAS IN SINUS RHYTHM TO SINUS DARREL THROUGHOUT SHIFT W/O PROBLEM. PT TO D/C WITH ZIO PATCH TODAY.
[2024-07-18 07:44] VITALS: BP 115/67
[2024-07-18] MEDS ORDERED: Amiodarone HCl 200 MG Tab PO SCH (09:00)
[2024-07-18 12:29] VITALS: BP 136/74
--- NOTE | 2024-07-18 13:00 | NUR ---
DISCHARGE NOTE: PATIENT DISCHARGE, LEFT WITH ALL PERSONAL BELONGINGS & DISCHARGE PAPERWORK THAT PRIMARY NURSE WENT OVER WITH PATIENT. DAUGHTER AT BEDSIDE TO BE HER RIDE. WAS WALKED OUT WITH THIS RN TO CAR. TELE & IV WERE REMOVED BY PRIMARY RN.
--- NOTE | 2024-07-18 13:35 | NUR ---
SHIFT SUMMARY PATIENT A0X4 ABLE TO MAKE NEEDS KNOWN. VITALS ARE STABLE AND SHE IS INDEPENDENT IN THE ROOM. SHE READY FOR DISCHARGE AND DAUGHTER IS AT BEDSIDE AND ALL QUESTIONS WERE ANSWERED. SHE DID GET THE ZIO PATCH PLACED AND IV REMOVED.
[2024-07-19] MEDS ORDERED: Torsemide 20 MG TAB PO SCH (09:00)
== END 2024-07-18 12:51 | disposition home or self-care (01) | DRG 309 ==
LOC: ER 21:49 → ERHOLD 07-17 00:25 → PCU 07-17 00:25
PROVIDERS: Family Medicine; Student in an Organized Health Care Education/Training Program; ADMIT Student in an Organized Health Care Education/Training Program
DX: I48.0 Paroxysmal atrial fibrillation (principal); I50.22 Chronic systolic (congestive) heart failure; I42.8 Other cardiomyopathies; F17.200 Nicotine dependence, unspecified, uncomplicated; Z96.652 Presence of left artificial knee joint; Z79.01 Long term (current) use of anticoagulants; Z79.84 Long term (current) use of oral hypoglycemic drugs; Z90.49 Acquired absence of other specified parts of digestive tract
CPT/HCPCS: 36415; 71046; 80053; 83735; 83880; 84100; 84484; 85025; 93005; 93010; 93246; 96374; 99285-25; A9270; J0282; J7060